=== PATIENT | female | born 1970 | race Caucasian/White ===

== ENCOUNTER 2017-09-05 18:46 | Emergency (ER) | payer BC ==
[2015-07-13 09:35] VITALS: BMI 37.1
[~2017-09-05 18:46] MED LIST: BYSTOLIC20 MG PO; CATAPRES0.2 MG PO; CATAPRES0.3 MG PO; CYMBALTA60 MG PO; HYDROCHLOROTH12.5 M1 PO; HYDROCHLOROTHIA25 MG; PLAVIX75 MG PO; PREDNISONE20 MG PO
[2017-09-05 19:29] LABS: BASOPHILS 0.3 % (0-2); EOSINOPHILS 0.9 % (0-7); HEMATOCRIT 34.5 % (36.0-48.0); HEMOGLOBIN 11.5 g/dL (12-16); IMMATURE GRANULOCYTES 0.3 % (0-5); LYMPHOCYTES 32.5 % (15-50); MCH 30.4 pg (26.0-34.0); MCHC 33.3 g/dL (31.0-37.0); MCV 91.3 fL (80.0-100.0); MEAN PLATELET VOLUME 9.9 fL (7.4-10.4); MONOCYTES 4.7 % (2-11); NEUTROPHILS 61.3 % (40-80); PLATELET COUNT 317 10x3/uL (130-400); RBC 3.78 10x6/uL (4.00-5.40); RDW 14.1 % (11.5-14.5); WBC 9.8 10x3/uL (4.8-10.8)
[2017-09-05 19:41] LABS: ALBUMIN 3.7 g/dL (3.4-5.0); ALKALINE PHOSPHATASE 103 U/L (46-116); ALT (SGPT) 39 U/L (10-68); BILIRUBIN - TOTAL 0.29 mg/dL (0.2-1.3); CALC OSMOLALITY 281 mosm/kg (275-300); CALCIUM 8.9 mg/dL (8.5-10.1); CARBON DIOXIDE 25.9 mmol/L (21.0-32.0); CHLORIDE - SERUM 103 mmol/L (98-107); CREATININE - SERUM 1.1 mg/dL (0.6-1.3); POTASSIUM - SERUM 3.1 mmol/L (3.5-5.1); PROTEIN - SERUM 7.9 g/dL (6.4-8.2); SODIUM 141 mmol/L (136-145); UREA NITROGEN 10 mg/dL (7-18); eGFR NON AFRICAN AMERICAN 57 mL/min (90-120)
[2017-09-05 19:43] LABS: GLUCOSE 130 mg/dL (74-106)
[2017-09-05 20:02] LABS: CHOL - HDL RATIO 4.2 ratio (2.3-4.1); CHOLESTEROL, TOTAL 170 mg/dL (0-200); CKMB 3.2 U/L (0.0-3.6); CREATINE KINASE 214 UL (21-215); HDL CHOLESTEROL 41 mg/dL (32-96); LDL CHOLESTEROL 109 mg/dL (0-100); LDL-HDL RATIO 2.7 ratio (1.5-3.5); TRIGLYCERIDE 104 mg/dL (30-200)
[2017-09-05 20:03] LABS: TROPONIN-I < 0.017 ng/mL (0.000-0.060)
[2017-09-05 20:15] LABS: APTT 28.7 SECONDS (22.8-39.4); INR 0.97 (0.85-1.17); PROTIME 12.5 SECONDS (11.6-15.0)
[2017-09-05 20:17] LABS: D-DIMER-QUANTITATIVE 0.29 ug/mLFEU (0.20-0.54)
[2017-09-05 20:28] LABS: AMYLASE - SERUM 28 U/L (25-115); LIPASE 71 U/L (73-393)
== END 2017-09-05 22:58 | disposition home or self-care (01) ==
LOC: D.ER 18:46
PROVIDERS: Family Medicine
DX: R07.89 Other chest pain (principal); R07.9 Chest pain, unspecified; I10 Essential (primary) hypertension; R00.0 Tachycardia, unspecified; F17.200 Nicotine dependence, unspecified, uncomplicated

== ENCOUNTER 2019-02-20 13:26 | Emergency (ER) | payer SELFPAY ==
[~2019-02-20] VITALS: Ht 160 cm; Wt 90.9 kg
[2019-02-20 13:38] VITALS: BP 151/90; Ht 160 cm; Wt 90.9 kg
[2019-02-20] MEDS ORDERED: NORVASC10 MG PO (13:40)
[2019-02-20] MEDS ORDERED: EFFEXOR75 MG PO (13:41)
[2019-02-20] MEDS ORDERED: ULTRAM50 MG PO (15:54)
== END 2019-02-20 16:04 | disposition home or self-care (01) ==
LOC: D.ER 13:26
DX: R51 Headache (principal)

== ENCOUNTER 2019-02-21 20:32 | Emergency (ER) | payer SELFPAY ==
[~2019-02-21] VITALS: Ht 160 cm; Wt 90.9 kg
[~2019-02-21 20:32] MED LIST changes: +EFFEXOR75 MG PO; +NORVASC10 MG PO; +ULTRAM50 MG PO
[2019-02-21 20:46] VITALS: Ht 160 cm; Wt 90.9 kg
[2019-02-21 23:01] LABS: BASOPHILS 0.2 % (0-2); EOSINOPHILS 1.2 % (0-7); HEMATOCRIT 35.6 % (36.0-48.0); HEMOGLOBIN 11.9 g/dL (12-16); IMMATURE GRANULOCYTES 0.2 % (0-5); LYMPHOCYTES 41.5 % (15-50); MCH 29.5 pg (26.0-34.0); MCHC 33.4 g/dL (31.0-37.0); MCV 88.1 fL (80.0-100.0); MEAN PLATELET VOLUME 9.4 fL (7.4-10.4); MONOCYTES 5.7 % (2-11); NEUTROPHILS 51.2 % (40-80); PLATELET COUNT 259 10x3/uL (130-400); RBC 4.04 10x6/uL (4.00-5.40); RDW 13.8 % (11.5-14.5); WBC 10.1 10x3/uL (4.8-10.8)
[2019-02-21 23:11] LABS: APTT 29.3 SECONDS (22.8-39.4); INR 0.99 (0.85-1.17); PROTIME 12.6 SECONDS (11.6-15.0)
[2019-02-21 23:16] LABS: ALBUMIN 3.5 g/dL (3.4-5.0); ALKALINE PHOSPHATASE 89 U/L (46-116); ALT (SGPT) 17 U/L (10-68); BILIRUBIN - TOTAL 0.24 mg/dL (0.2-1.3); CALC OSMOLALITY 283 mosm/kg (275-300); CALCIUM 9.5 mg/dL (8.5-10.1); CARBON DIOXIDE 32.2 mmol/L (21.0-32.0); CHLORIDE - SERUM 103 mmol/L (98-107); CREATININE - SERUM 0.9 mg/dL (0.6-1.3); GLUCOSE 98 mg/dL (74-106); POTASSIUM - SERUM 3.9 mmol/L (3.5-5.1); PROTEIN - SERUM 7.2 g/dL (6.4-8.2); SODIUM 142 mmol/L (136-145); UREA NITROGEN 16 mg/dL (7-18); eGFR NON AFRICAN AMERICAN 71 mL/min (90-120)
[2019-02-21 23:27] LABS: CKMB 0.3 U/L (0.0-3.6); CREATINE KINASE 37 UL (21-215)
[2019-02-21 23:29] LABS: TROPONIN-I < 0.017 ng/mL (0.000-0.060)
[2019-02-21 23:55] LABS: APPEARANCE CLEAR (CLEAR); BILIRUBIN NEGATIVE (NEGATIVE); COLOR YELLOW (YELLOW); GLUCOSE NEGATIVE (NEGATIVE); KETONE NEGATIVE (NEGATIVE); NITRITE NEGATIVE (NEGATIVE); PROTEIN NEGATIVE (NEGATIVE); SPECIFIC GRAVITY 1.005 (1.005-1.020); UROBILINOGEN NORMAL (NORMAL)
[2019-02-22 02:36] VITALS: BP 125/77
== END 2019-02-22 02:37 | disposition home or self-care (01) ==
LOC: D.ER 20:32
PROVIDERS: Family Medicine
DX: R51 Headache (principal); G43.909 Migraine, unspecified, not intractable, without status migrainosus; F17.200 Nicotine dependence, unspecified, uncomplicated; I10 Essential (primary) hypertension

== ENCOUNTER 2019-04-20 08:45 | Emergency (ER) | payer SELFPAY ==
[~2019-04-20] VITALS: Ht 160 cm; Wt 95.5 kg
[2019-04-20 08:55] VITALS: Ht 160 cm; Wt 95.5 kg
[2019-04-20] MEDS ORDERED: BUTALB-APAP-CA1 EACH PO (09:45)
[2019-04-20 10:23] VITALS: BP 116/80
== END 2019-04-20 10:24 | disposition home or self-care (01) ==
LOC: D.ER 08:45
DX: G43.909 Migraine, unspecified, not intractable, without status migrainosus (principal)

== ENCOUNTER 2021-01-03 21:56 | Emergency (ER) | payer OTHER ==
[~2021-01-03] VITALS: Ht 160 cm; Wt 91.4 kg
[~2021-01-03 21:56] MED LIST changes: +BUTALB-APAP-CA1 EACH PO; +COMPAZINE25 MG RC; +FLORAJEN3 CAPS460 MG PO; +OMNICEF300 MG PO; +SUMATRIPTAN SUC25 MG PO; +ZOMIG2.5 MG PO
[2021-01-03 22:04] VITALS: Ht 160 cm; Wt 91.4 kg
[2021-01-03] MEDS ORDERED: ZOMIG2.5 MG PO (22:10)
[2021-01-03 23:13] LABS: BASOPHILS 2.2 % (0-2); CALC OSMOLALITY 281 mosm/kg (275-300); CALCIUM 8.8 mg/dL (8.5-10.1); CARBON DIOXIDE 26.7 mmol/L (21.0-32.0); CHLORIDE - SERUM 107 mmol/L (98-107); CREATININE - SERUM 1.2 mg/dL (0.6-1.3); GLUCOSE 124 mg/dL (74-106); HEMATOCRIT 35.2 % (36.0-48.0); HEMOGLOBIN 12.2 g/dL (12-16); LYMPHOCYTES 43.8 % (15-50); MCHC 34.5 g/dL (31.0-37.0); MCV 86.9 fL (80.0-100.0); MEAN PLATELET VOLUME 8.7 fL (7.4-10.4); MONOCYTES 6.4 % (2-11); NEUTROPHILS 44.6 % (40-80); PLATELET COUNT 319 10x3/uL (130-400); POTASSIUM - SERUM 3.7 mmol/L (3.5-5.1); RBC 4.05 10x6/uL (4.00-5.40); RDW 14.3 % (11.5-14.5); SODIUM 142 mmol/L (136-145); UREA NITROGEN 8 mg/dL (7-18); WBC 8.2 10x3/uL (4.8-10.8); eGFR NON AFRICAN AMERICAN 51 mL/min (90-120)
[2021-01-03 23:31] LABS: ALBUMIN 3.5 g/dL (3.4-5.0); ALKALINE PHOSPHATASE 118 U/L (30-120); ALT (SGPT) 25 U/L (10-68); BILIRUBIN - TOTAL 0.23 mg/dL (0.2-1.3); CKMB 0.1 U/L (0.0-3.6); CREATINE KINASE 66 UL (21-215); LIPASE 56 U/L (73-393); PRO BNP 509 pg/mL (0-125); PROTEIN - SERUM 7.7 g/dL (6.4-8.2); TROPONIN-I < 0.017 ng/mL (0.000-0.060)
[2021-01-04 01:03] LABS: BILIRUBIN NEGATIVE (NEGATIVE); KETONE NEGATIVE mg/dL (< 1+); NITRITE NEGATIVE (NEGATIVE); PH 5.5 (5.0-8.0); UROBILINOGEN NORMAL mg/dL (< 2)
[2021-01-04 01:06] LABS: UDS - AMPHET NEGATIVE QUAL (NEGATIVE); UDS - BARB NEGATIVE QUAL (NEGATIVE); UDS - BENZO POSITIVE QUAL (NEGATIVE); UDS - COCAINE NEGATIVE QUAL (NEGATIVE); UDS - OPIATE NEGATIVE QUAL (NEGATIVE); UDS - PCP NEGATIVE QUAL (NEGATIVE); UDS - THC POSITIVE QUAL (NEGATIVE)
[2021-01-04] MEDS ORDERED: VENTOLIN HFA [SP8 GM INH (03:27)
[2021-01-04] MEDS ORDERED: MEDROL DOSE PACK4 MG PO (03:27)
[2021-01-04] MEDS ORDERED: LEVAQUIN750 MG PO (03:27)
[2021-01-04 03:58] VITALS: BP 141/75
== END 2021-01-04 03:58 | disposition home or self-care (01) ==
LOC: D.ER 21:56
PROVIDERS: Emergency Medicine
DX: J44.9 Chronic obstructive pulmonary disease, unspecified (principal); J40 Bronchitis, not specified as acute or chronic; F12.10 Cannabis abuse, uncomplicated; F17.210 Nicotine dependence, cigarettes, uncomplicated; I10 Essential (primary) hypertension; N19 Unspecified kidney failure

== ENCOUNTER 2021-01-08 14:04 | Emergency (ER) | payer OTHER ==
[~2021-01-08] VITALS: Ht 160 cm; Wt 90.9 kg
[~2021-01-08 14:04] MED LIST changes: +LEVAQUIN750 MG PO; +MEDROL DOSE PACK4 MG PO; +VENTOLIN HFA [SP8 GM INH
[2021-01-08 14:08] VITALS: Ht 160 cm; Wt 90.9 kg
[2021-01-08 15:08] LABS: SARS-CoV-2 ANTIGEN NEGATIVE- SARS-COV-2 (NEGATIVE)
[2021-01-08 15:30] LABS: BASOPHILS 0.4 % (0-2); EOSINOPHILS 2.7 % (0-7); HEMATOCRIT 33.8 % (36.0-48.0); HEMOGLOBIN 11.4 g/dL (12-16); LYMPHOCYTES 32.2 % (15-50); MCH 29.6 pg (26.0-34.0); MCHC 33.8 g/dL (31.0-37.0); MCV 87.7 fL (80.0-100.0); MEAN PLATELET VOLUME 7.9 fL (7.4-10.4); MONOCYTES 7.7 % (2-11); PLATELET COUNT 295 10x3/uL (130-400); RBC 3.86 10x6/uL (4.00-5.40); RDW 14.2 % (11.5-14.5); WBC 9.3 10x3/uL (4.8-10.8)
[2021-01-08 15:42] LABS: ANION GAP 10.3 mmol/L (8-16); CALCIUM 8.8 mg/dL (8.5-10.1); CARBON DIOXIDE 30.7 mmol/L (21.0-32.0); CREATININE - SERUM 1.2 mg/dL (0.6-1.3)
[2021-01-08 15:45] LABS: ALBUMIN 3.3 g/dL (3.4-5.0); BILIRUBIN - TOTAL 0.3 mg/dL (0.2-1.3); PROTEIN - SERUM 7.2 g/dL (6.4-8.2)
[2021-01-08] MEDS ORDERED: PROMETHAZINE W473 ML PO (16:15)
[2021-01-08 16:18] VITALS: BP 112/70
== END 2021-01-08 16:18 | disposition home or self-care (01) ==
LOC: D.ER 14:04
PROVIDERS: Family Medicine
DX: J06.9 Acute upper respiratory infection, unspecified (principal); R06.02 Shortness of breath; I10 Essential (primary) hypertension; Z72.0 Tobacco use